=== PATIENT | male | born 1970 | race Caucasian/White ===

== ENCOUNTER → 2018-09-25 | Outpatient (CLI) | payer BC, OTHER ==
[2018-09-26 09:57] LABS: HEPATITIS B SURFACE ANTIGEN NEGATIVE (NEGATIVE)
[2018-09-26 09:57] LABS: RUBELLA IgG QUALITATIVE IMMUNE (IMMUNE)
[2018-09-29 00:42] LABS: HEPATITIS A IgG TOTAL Positive (Negative); MUMPS VIRUS IgG ANTIBODY 27.3 AU/mL (Immune >10.9); POLIO ANTIBODIES/POLIOMYELITIS Negative (Neg:<1:8); RUBEOLA IgG ANTIBODY >300.0 AU/mL (Immune >29.9)
[2018-09-29 00:42] LABS: HERPES ZOSTER, VARICELLA IgG >4000 index (Immune >165)
== END ==
LOC: M ADAMS 15:05
DX: Z02.89 Encounter for other administrative examinations (principal)
CPT/HCPCS: 86762